=== PATIENT | female | born 1965 | race Hispanic/Latino ===

== ENCOUNTER 2024-05-14 07:29 | Observation (INO) | payer OTHER ==
[2024-05-11 13:12] LABS: BASOPHILS # (AUTO) 0.1 (0.0-0.1); BASOPHILS % 0.6 % (0.0-1.0); EOSINOPHILS # (AUTO) 0.1 (0.0-0.4); EOSINOPHILS % 0.6 % (0.0-6.0); HEMATOCRIT 40.4 % (34.2-44.1); HEMOGLOBIN 12.8 g/dL (12.0-16.0); LYMPHOCYTES % 22.3 % (18.0-39.1); MEAN CORPUSCULAR HEMOGLOBIN 29.6 pg (28-32); MEAN CORPUSCULAR HGB CONC 31.7 g/dL (31-35); MEAN CORPUSCULAR VOLUME 93.5 fL (81-99); MONOCYTES # (AUTO) 0.6 (0.2-0.8); MONOCYTES % 6.4 % (4.4-11.3); NEUTROPHILS # (AUTO) 6.2 (2.1-6.9); NEUTROPHILS % 69.8 % (38.7-80.0); PLATELET COUNT 208 x10e3/uL (140-360); RED BLOOD COUNT 4.32 x10e6/uL (3.6-5.1); WHITE BLOOD COUNT 8.86 x10e3/uL (4.8-10.8)
[2024-05-11 13:37] LABS: ALBUMIN 4.2 g/dL (3.5-5.0); ALBUMIN/GLOBULIN RATIO 1.1 (0.8-2.0); ANION GAP 14.4 mmol/L (8-16); BILIRUBIN,TOTAL 1.3 mg/dL (0.2-1.2); CALCIUM 9.8 mg/dL (8.4-10.2); CREATININE, SERUM 0.83 mg/dL (0.57-1.11); TOTAL PROTEIN 7.9 g/dL (6.5-8.1)
[2024-05-11 13:43] LABS: POTASSIUM 3.4 mmol/L (3.5-5.1)
[~2024-05-14] VITALS: Ht 147.3 cm; Wt 61.2 kg
[~2024-05-14 07:29] MED LIST: OMEPRAZOLE40 MG PO; ZESTRIL10 MG PO
[2024-05-14] MEDS: LACTATED RINGER'S 1,000 ML ONE (08:56)
[2024-05-14] MEDS ORDERED: SCOPOLAMINE 1 MG PATCH ONE (09:08)
[2024-05-14] MEDS ORDERED: LIDOCAINE HCL 1% 2 ML AMP ONE (09:22)
[2024-05-14] MEDS ORDERED: ACETAMINOPHEN 1000 MG/100 ML IV PRN (11:45)
[2024-05-14] MEDS ORDERED: HYDROCODONE/APAP 5MG-325MG TAB PO PRN (11:45)
[2024-05-14] MEDS ORDERED: SODIUM CHLORIDE 0.9% 1000ML 1,000 ML IV SCH (11:45)
[2024-05-14] MEDS: FENTANYL CITRATE/PF 100MCG/2 ML INJ ONE (12:15)
[2024-05-14 15:17] VITALS: BP 141/70; PULSE 59; RESP 19; TEMP 97.4; O2SAT 100
[2024-05-14] MEDS: HYDROMORPHONE 1MG/1ML INJ IV PRN (16:33)
[2024-05-14] MEDS: ONDANSETRON HCL INJ 2MG/ML 2ML 2 MG/ML VIAL IV PRN (16:33)
[2024-05-14 17:00] VITALS: BP 141/70; PULSE 59; RESP 19; TEMP 97.4; O2SAT 100
[2024-05-14 20:00] VITALS: BP 108/59; PULSE 59; RESP 16; TEMP 97.3; O2SAT 100
== END 2024-05-14 19:00 | disposition home or self-care (01) ==
LOC: OR 07:29 → PACU V 11:45 → MED/SURG2 13:36
PROVIDERS: ADMIT Surgery; ATTEND Surgery
DX: C50.412 Malignant neoplasm of upper-outer quadrant of left female breast (principal); Z01.810 Encounter for preprocedural cardiovascular examination; I10 Essential (primary) hypertension; Z01.812 Encounter for preprocedural laboratory examination; K21.9 Gastro-esophageal reflux disease without esophagitis
CPT/HCPCS: 19303; 36415; 38525; 80053; 85025; 88307; 93005; G0378; J1171; J2003; J2405; J3010; J7121; 88342